=== PATIENT | male | born 1955 | race Caucasian/White ===

== ENCOUNTER 2021-01-06 14:09 | Inpatient (IN) | payer OTHER, MEDICAID ==
[~2021-01-06] VITALS: Ht 175.3 cm; Wt 102.5 kg
[2021-01-06 16:29] LABS: HEMATOCRIT. 43.6 % (42.0-52.0); HEMOGLOBIN. 14.6 g/dL (14.0-18.0); MEAN CORPUSCULAR HEMOGLOBIN 29.6 pg (28.0-32.0); MEAN CORPUSCULAR VOLUME 88.7 fL (80.0-94.0); PLATELET 170 x1000/uL (130-400); RED BLOOD CELL COUNT 4.91 mill/uL (4.7-6.1); RED CELL DISTRIBUTION WIDTH 13.8 % (11.6-14.6)
[2021-01-06 16:34] LABS: CHLORIDE 106 mEq/L (98-107)
[2021-01-06 17:11] LABS: CLARITY URINE TURBID (CLEAR); COLOR URINE RED (YELLOW); KETONES URINE NEGATIVE (NEGATIVE); LEUKOCYTE ESTERASE URINE 3+ (NEGATIVE); NITRITE URINE POSITIVE (NEGATIVE); OCCULT BLOOD URINE 2+ (NEGATIVE); PROTEIN URINE 2+ (NEGATIVE); UROBILINOGEN URINE 0.2 E.U./dL (0.2-1.0)
[2021-01-06 17:26] LABS: PLATELET ESTIMATE NORMAL
[2021-01-06] MEDS ORDERED: CEFTRIAXONE 1 G PREMIX 50 ML IV NR (17:30)
[2021-01-06] MEDS ORDERED: SODIUM CHLORIDE 0.9% 1,000 ML IV ONE (17:30)
[2021-01-06] MEDS ORDERED: MORPHINE SULFATE 4 MG/ML CPJ (NOT FOR IM USE) IV ONE (18:00)
[2021-01-06 18:13] LABS: CHLORIDE 108 mEq/L (98-107)
[2021-01-07 08:00] VITALS: BP 133/66
[2021-01-07] MEDS ORDERED: LORAZEPAM 0.5MG TABLET PO PRN (08:45)
[2021-01-07] MEDS ORDERED: CLONIDINE 0.1MG TABLET PO PRN (08:45)
[2021-01-07] MEDS ORDERED: DOCUSATE SODIUM 100MG CAPSULE PO PRN (08:45)
[2021-01-07] MEDS ORDERED: HYDROCODONE/ACETAMINOPHEN 5/325MG TABLET PO PRN (08:45)
[2021-01-07] MEDS ORDERED: ACETAMINOPHEN 325MG TABLET PO PRN ×2 (08:45)
[2021-01-07] MEDS ORDERED: CEFTRIAXONE 1 G PREMIX 50 ML IV SCH (08:45)
[2021-01-07] MEDS ORDERED: IPRATROPIUM/ALBUTEROL 0.5-3(2.5)MG/3ML NEB HHN PRN (08:45)
[2021-01-07] MEDS ORDERED: ONDANSETRON HCL 4MG/2ML INJ IV PRN (08:45)
[2021-01-07 09:00] VITALS: BP 133/66
[2021-01-07 12:00] VITALS: BP 115/54
[2021-01-07 16:00] VITALS: BP 104/53
[2021-01-07] MEDS: CEFTRIAXONE 1,000 MG in DEXTROSE 5% WATER 50 ML IV SCH (17:39)
[2021-01-07] MEDS: FINASTERIDE 5MG TABLET PO SCH (17:40)
[2021-01-07] MEDS: TAMSULOSIN HCL 0.4MG SR CAPSULE PO SCH (17:40)
[2021-01-07 18:46] LABS: INR 1.1; PROTHROMBIN TIME 11.2 sec (9.6-11.0)
[2021-01-07 20:00] VITALS: BP 92/61
[2021-01-07] MEDS: HYDROCORTISONE 1% CREAM 30GM TOP SCH (20:19)
[2021-01-08] VITALS: BP 101/52
[2021-01-08 04:00] VITALS: BP 109/65
[2021-01-08 07:05] LABS: CHLORIDE 106 mEq/L (98-107)
[2021-01-08 07:23] LABS: BASOPHILS % 0.3 % (0.0-2.0); EOSINOPHILS % 1.1 % (0.0-5.0); HEMATOCRIT. 36.6 % (42.0-52.0); HEMOGLOBIN. 12.1 g/dL (14.0-18.0); LYMPHOCYTES % 14.6 % (20.0-50.0); MEAN CORPUSCULAR HEMOGLOBIN 29.7 pg (28.0-32.0); MEAN CORPUSCULAR VOLUME 89.7 fL (80.0-94.0); MEAN PLATELET VOLUME 9.8 fl (7.4-10.4); MONOCYTES % 9.6 % (2.0-8.0); NEUTROPHILS % 74.4 % (40.0-76.0); PLATELET 153 x1000/uL (130-400); RED BLOOD CELL COUNT 4.08 mill/uL (4.7-6.1); RED CELL DISTRIBUTION WIDTH 13.9 % (11.6-14.6)
[2021-01-08 07:49] VITALS: BP 103/61
[2021-01-08] MEDS: TAMSULOSIN HCL 0.4MG SR CAPSULE PO SCH (08:23)
[2021-01-08] MEDS: FINASTERIDE 5MG TABLET PO SCH (08:23)
[2021-01-08] MEDS: HYDROCORTISONE 1% CREAM 30GM TOP SCH ×2 (08:23→20:39)
[2021-01-08] MEDS: SODIUM CHLORIDE 0.9% 1,000 ML IV SCH ×2 (10:45→20:39)
[2021-01-08 12:00] VITALS: BP 126/73
[2021-01-08 16:00] VITALS: BP 111/57
[2021-01-08] MEDS: CEFTRIAXONE 1,000 MG in DEXTROSE 5% WATER 50 ML IV SCH (16:57)
[2021-01-08 20:00] VITALS: BP 109/60
[2021-01-09] VITALS: BP 113/59
[2021-01-09 04:00] VITALS: BP 125/64
[2021-01-09] MEDS: SODIUM CHLORIDE 0.9% 1,000 ML IV SCH (06:42)
[2021-01-09 07:47] LABS: HEMATOCRIT 32.8 % (42.0-52.0); HEMOGLOBIN 11.1 g/dL (14.0-18.0); MEAN CORPUSCULAR HEMOGLOBIN 30.7 pg (28.0-32.0); MEAN CORPUSCULAR VOLUME 90.7 fL (80.0-94.0); PLATELET 147 x1000/uL (130-400); RED BLOOD CELL COUNT 3.62 mill/uL (4.7-6.1)
[2021-01-09 08:00] VITALS: BP 116/71
[2021-01-09] MEDS: FINASTERIDE 5MG TABLET PO SCH (09:07)
[2021-01-09] MEDS: TAMSULOSIN HCL 0.4MG SR CAPSULE PO SCH (09:07)
[2021-01-09] MEDS: HYDROCORTISONE 1% CREAM 30GM TOP SCH (09:08)
[2021-01-09 12:00] VITALS: BP 119/65
[2021-01-09] MEDS ORDERED: TAMS-11 PO (12:46)
[2021-01-09] MEDS ORDERED: FINA5TAB11 PO (12:46)
[2021-01-09] MEDS ORDERED: HYDR453.3 TP (12:46)
[2021-01-09] MEDS: CEFTRIAXONE 1,000 MG in DEXTROSE 5% WATER 50 ML IV SCH (13:43)
[2021-01-09 14:32] VITALS: BP 119/65
== END 2021-01-09 15:45 | disposition home or self-care (01) | DRG 698 ==
LOC: ER 14:09 → MICUSO 18:09 → 5WST 01-07 05:41
PROVIDERS: ADMIT Internal Medicine; ATTEND Internal Medicine
PROC: 0T9B30Z Drainage of Bladder with Drainage Device, Percutaneous Approach (ICD-10-PCS; principal; 2021-01-06)
DX: N32.0 Bladder-neck obstruction (principal); R65.11 Systemic inflammatory response syndrome (SIRS) of non-infectious origin with acute organ dysfunction; N39.0 Urinary tract infection, site not specified; K57.90 Diverticulosis of intestine, part unspecified, without perforation or abscess without bleeding; N40.1 Benign prostatic hyperplasia with lower urinary tract symptoms; R33.8 Other retention of urine; R31.0 Gross hematuria; K76.0 Fatty (change of) liver, not elsewhere classified; K42.9 Umbilical hernia without obstruction or gangrene; I11.9 Hypertensive heart disease without heart failure; D72.810 Lymphocytopenia; N28.1 Cyst of kidney, acquired; N32.89 Other specified disorders of bladder
CPT/HCPCS: 36415; 74176; 80048; 80053; 81003; 84153; 85025; 85027; 96365; 99285; J0696; J2270; J7030; J7060; A4315; G0103

== ENCOUNTER 2021-01-27 13:42 | Emergency (ER) | payer OTHER, MEDICAID ==
[~2021-01-27] VITALS: Ht 177.8 cm; Wt 100.0 kg
[~2021-01-27 13:42] MED LIST: FINA5TAB11 PO; HYDR453.3 TP; TAMS-11 PO
[2021-01-27 14:30] VITALS: BP 159/84
== END 2021-01-27 15:16 | disposition home or self-care (01) ==
LOC: ER 13:52
DX: Z43.6 Encounter for attention to other artificial openings of urinary tract (principal); R33.9 Retention of urine, unspecified; R03.0 Elevated blood-pressure reading, without diagnosis of hypertension
CPT/HCPCS: 99281

== ENCOUNTER 2021-02-08 19:23 | Emergency (ER) | payer OTHER, MEDICAID ==
[~2021-02-08] VITALS: Ht 182.9 cm; Wt 100.0 kg
[2021-02-08 19:37] VITALS: BP 175/102
[2021-02-08] MEDS ORDERED: ACETAMINOPHEN 325MG TABLET PO ONE (20:30)
[2021-02-08 20:48] LABS: BASOPHILS % 0.3 % (0.0-2.0); CLARITY URINE TURBID (CLEAR); COLOR URINE RED (YELLOW); EOSINOPHILS % 1.2 % (0.0-5.0); HEMATOCRIT. 42.8 % (42.0-52.0); KETONES URINE NEGATIVE (NEGATIVE); LEUKOCYTE ESTERASE URINE 3+ (NEGATIVE); LYMPHOCYTES % 11.3 % (20.0-50.0); MEAN CORPUSCULAR HEMOGLOBIN 29.2 pg (28.0-32.0); MEAN PLATELET VOLUME 9.9 fl (7.4-10.4); MONOCYTES % 7.2 % (2.0-8.0); NITRITE URINE POSITIVE (NEGATIVE); OCCULT BLOOD URINE 3+ (NEGATIVE); PH URINE >=9.0 (4.5-8.0); PLATELET 194 x1000/uL (130-400); PROTEIN URINE 3+ (NEGATIVE); RED BLOOD CELL COUNT 4.81 mill/uL (4.7-6.1); RED CELL DISTRIBUTION WIDTH 13.6 % (11.6-14.6); SPECIFIC GRAVITY URINE 1.005 (1.005-1.030); UROBILINOGEN URINE 0.2 E.U./dL (0.2-1.0)
[2021-02-08 20:49] LABS: CHLORIDE 107 mEq/L (98-107)
[2021-02-08] MEDS ORDERED: CIPR250T4 MT (21:25)
[2021-02-08] MEDS ORDERED: CEFTRIAXONE 1 G PREMIX 50 ML IV ONE (21:30)
[2021-02-08] MEDS ORDERED: CIPR500T5 MT (21:58)
== END 2021-02-08 22:13 | disposition home or self-care (01) ==
LOC: ER 19:23
DX: T83.098A Other mechanical complication of other urinary catheter, initial encounter (principal); N39.0 Urinary tract infection, site not specified; Y84.6 Urinary catheterization as the cause of abnormal reaction of the patient, or of later complication, without mention of misadventure at the time of the procedure; Y92.018 Other place in single-family (private) house as the place of occurrence of the external cause
CPT/HCPCS: 36415; 51702; 80048; 81003; 85025; 87077; 87086; 87186; 93005; 96365; 99284; J0696

== ENCOUNTER 2021-02-15 11:28 | Emergency (ER) | payer OTHER, MEDICAID ==
[~2021-02-15] VITALS: Ht 180.3 cm; Wt 98.0 kg
[~2021-02-15 11:28] MED LIST changes: +CIPR500T5 MT
[2021-02-15 11:39] VITALS: BP 156/110
== END 2021-02-15 12:38 | disposition home health service (06) ==
LOC: ER 11:50
DX: I10 Essential (primary) hypertension (principal); Z46.6 Encounter for fitting and adjustment of urinary device
CPT/HCPCS: 99281

== ENCOUNTER 2021-02-20 21:11 | Emergency (ER) | payer OTHER, MEDICAID ==
[~2021-02-20] VITALS: Ht 182.9 cm; Wt 100.0 kg
[2021-02-20 23:01] LABS: BASOPHILS % 0.2 % (0.0-2.0); EOSINOPHILS % 0.1 % (0.0-5.0); HEMATOCRIT. 40.7 % (42.0-52.0); LYMPHOCYTES % 7.9 % (20.0-50.0); MEAN CORPUSCULAR HEMOGLOBIN 29.8 pg (28.0-32.0); MEAN CORPUSCULAR VOLUME 86.4 fL (80.0-94.0); MEAN PLATELET VOLUME 9.3 fl (7.4-10.4); MONOCYTES % 6.5 % (2.0-8.0); NEUTROPHILS % 85.3 % (40.0-76.0); PLATELET 228 x1000/uL (130-400); RED BLOOD CELL COUNT 4.71 mill/uL (4.7-6.1); RED CELL DISTRIBUTION WIDTH 13.5 % (11.6-14.6)
[2021-02-20 23:07] LABS: CHLORIDE 102 mEq/L (98-107)
[2021-02-20 23:11] LABS: PROTHROMBIN TIME 10.9 sec (9.6-11.0)
[2021-02-20] MEDS ORDERED: ONDANSETRON HCL 4MG/2ML INJ IV STA (23:28)
[2021-02-20] MEDS ORDERED: MORPHINE SULFATE 4 MG/ML CPJ (NOT FOR IM USE) IV STA (23:28)
[2021-02-21 00:02] LABS: CLARITY URINE CLOUDY (CLEAR); COLOR URINE YELLOW (YELLOW); KETONES URINE NEGATIVE (NEGATIVE); LEUKOCYTE ESTERASE URINE 3+ (NEGATIVE); NITRITE URINE NEGATIVE (NEGATIVE); OCCULT BLOOD URINE 1+ (NEGATIVE); PH URINE 5.5 (4.5-8.0); PROTEIN URINE 1+ (NEGATIVE); SPECIFIC GRAVITY URINE 1.016 (1.005-1.030); UROBILINOGEN URINE 0.2 E.U./dL (0.2-1.0)
[2021-02-21] MEDS ORDERED: TAMS-11 MT (01:43)
[2021-02-21] MEDS ORDERED: CEPH500C2 MT (01:44)
[2021-02-21 02:11] VITALS: BP 139/79
== END 2021-02-21 02:14 | disposition home or self-care (01) ==
LOC: ER 21:11
DX: R33.9 Retention of urine, unspecified (principal); K80.20 Calculus of gallbladder without cholecystitis without obstruction; N28.1 Cyst of kidney, acquired; I10 Essential (primary) hypertension; R00.0 Tachycardia, unspecified; K76.0 Fatty (change of) liver, not elsewhere classified
CPT/HCPCS: 36415; 51702; 76700; 80053; 81003; 83690; 85025; 85610; 87077; 87086; 87186; 93005; 96374; 96375; 99285; J2270; J2405; A4315

== ENCOUNTER 2022-10-24 11:21 | Emergency (ER) | payer OTHER, MEDICAID ==
[~2022-10-24] VITALS: Ht 182.9 cm; Wt 98.0 kg
[~2022-10-24 11:21] MED LIST changes: +CEPH500C2 MT; +TAMS-11 MT
[2022-10-24 13:36] LABS: HEMATOCRIT. 42.7 % (42.0-52.0); HEMOGLOBIN. 14.5 g/dL (14.0-18.0); MEAN CORPUSCULAR HEMOGLOBIN 30.5 pg (28.0-32.0); MEAN CORPUSCULAR VOLUME 90.1 fL (80.0-94.0); MEAN PLATELET VOLUME 9.5 fl (7.4-10.4); PLATELET 169 x1000/uL (130-400); RED BLOOD CELL COUNT 4.74 mill/uL (4.7-6.1); RED CELL DISTRIBUTION WIDTH 13.9 % (11.6-14.6)
[2022-10-24 13:37] LABS: CLARITY URINE CLEAR (CLEAR); COLOR URINE YELLOW (YELLOW); KETONES URINE NEGATIVE (NEGATIVE); LEUKOCYTE ESTERASE URINE NEGATIVE (NEGATIVE); NITRITE URINE NEGATIVE (NEGATIVE); OCCULT BLOOD URINE TRACE (NEGATIVE); PH URINE 6.5 (4.5-8.0); PROTEIN URINE NEGATIVE (NEGATIVE); SPECIFIC GRAVITY URINE 1.014 (1.005-1.030); UROBILINOGEN URINE 0.2 E.U./dL (0.2-1.0)
[2022-10-24 14:07] LABS: PLATELET ESTIMATE NORMAL
[2022-10-24 16:00] VITALS: BP 130/69
[2022-10-24 16:04] LABS: CHLORIDE 108 mEq/L (98-107)
[2022-10-26] MEDS ORDERED: LEVO-65 MT (11:25)
== END 2022-10-24 17:06 | disposition home or self-care (01) ==
LOC: ER 11:21
DX: R33.9 Retention of urine, unspecified (principal); K42.9 Umbilical hernia without obstruction or gangrene; I10 Essential (primary) hypertension
CPT/HCPCS: 36415; 51702; 80048; 81003; 85025; 99284; A4315